=== PATIENT | male | born 1945 | race Caucasian/White ===

== ENCOUNTER 2016-08-22 10:46 | Inpatient (IN) | payer MEDICARE ==
[~2016-08-22] VITALS: Ht 190.5 cm; Wt 138.2 kg
--- NOTE | ~2016-08-22 | DS ---
PATIENT'S NAME: PELON AZEVEDO [facility] AGE: 71 Y [address] ROOM: [facility] [place], [place] [address] LOCATION: GICU ADMIT DATE: 08/22/2016 Discharge Summary DISCHARGE DATE: 08/27/2016 FAMILY PHYSICIAN: Sourav Bahena MD ATTENDING PHYSICIAN: Frances Sanchez DATE OF : August 27, 2016. REASON FOR ADMISSION: The patient was a 71-year-old male who had sustained a fall the evening before his admission and as a result of the fall, developed a large subdural hematoma. Treatment rendered, the patient was transferred from [facility] by air to [facility]. At the time of arrival, the patient had no eye opening, no motor response, and he was already intubated. There was a laceration to the back of his head, which had been stapled. TREATMENT RENDERED: The patient was taken to the operating room emergently and underwent craniotomy for evacuation of his subdural hematoma and placement of intracranial pressure monitor. Postoperatively, the patient did not really respond or regain consciousness. His intracranial pressures were initially controllable, but they became rather difficult to control and climbed up progressively. 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 Discussions were held with the patient's family and they did not wish for prolongation of the patient's life as the quality of life was not going to be very acceptable and even his survival was questionable. The patient was therefore compassionately extubated and he shortly thereafter. CAUSE OF : Cardiorespiratory failure secondary to increased intracranial pressure from large subdural hematoma. The patient was status post craniotomy and evacuation of hematoma. FRANCES SANCHEZ MD CNO/modl /[id number] d: 09/23/16 0838 t: 09/23/16 1511, DISCHARGE SUMMARY
--- NOTE | ~2016-08-22 | OR ---
PATIENT'S NAME: PELON AZEVEDO [facility] AGE: 71 Y [address] ROOM: [place] [address] LOCATION: GICU ADMIT DATE: 08/22/2016 OR/Procedure Report DISCHARGE DATE: FAMILY PHYSICIAN: Sourav Bahena MD ATTENDING PHYSICIAN: Jazmin Sanchez SURGEON: Devin Levine MD WATERSHED PROGRAM MANAGER: DATE OF PROCEDURE: 08/22/2016 PROCEDURES: 1. Right internal jugular vein central venous catheter. 2. Left radial arterial line. INDICATIONS: The patient with large acute subdural hematoma requiring craniotomy evacuation of hematoma, need for a hndf-xo-xzav pressure, monitoring, volume assessment, and elective medications. DESCRIPTION OF PROCEDURE: The patient is lying supine in the operating room. Right neck and chest were prepped with chlorhexidine 2% and maximal sterile barriers were worn at all times. Ultrasound was used to visualize the internal jugular vein with a single stick using ultrasound guidance. Dark nonpulsatile blood was found on return and the wire was fitted without difficulty. The ultrasound was then used to visualize the wire in internal jugular vein. Skin, nicked, dilated, and 16 cm four lumen catheter was placed over wire without complication. The wire was removed. The catheter was sutured in place. All ports withdrew, blood flushed easily and sterile dressing applied on top. Chest x-ray ordered in the ICU. The left arm was extended out about 90 degrees and the radial artery was easily palpated. The area was cleaned with chlorhexidine 2% and a 20-gauge Arrow catheter was inserted with a single stick using Seldinger technique. Bright red pulsatile blood was found and catheter threaded easily and was secured into place. COMPLICATIONS: None. BLOOD LOSS: None. DEVIN LEVINE MD JJP/uma PATIENT'S NAME: PELON AZEVEDO [facility] AGE: 71 Y [address] ROOM: [place] [address] LOCATION: GI ADMIT DATE: 08/22/2016 OR/Procedure Report DISCHARGE DATE: FAMILY PHYSICIAN: Sourav Bahena MD ATTENDING PHYSICIAN: Jazmin Sanchez /[id number] d: 08/22/16 1513 t: 09/11/16 1344, OPERATIVE SUMMARY
--- NOTE | ~2016-08-22 | ER ---
PATIENT'S NAME: PELON AZEVEDO [facility] AGE: 71 Y [address] ROOM: [place] [address] LOCATION: GICU ADMIT DATE: 08/22/2016 ER/Outpatient Report DISCHARGE DATE: FAMILY PHYSICIAN: Sourav Bahena MD ATTENDING PHYSICIAN: Jazmin Sanchez CHIEF COMPLAINT: Unresponsive. HISTORY OF PRESENT ILLNESS: The patient arrives by air ambulance from [facility]. The patient was diagnosed with intracranial hemorrhage, likely subdural hematoma, traumatic, this morning. The patient was seen last night in the ER for a fall while at home. The patient is a known alcoholic. He was deemed to be neurologically appropriate last night, and his scalp laceration was closed and he was discharged. He did not wake up at 2 a.m. according to the who has some broken ankle issues and thus when he did not wake up this morning, she called the ambulance. A head CT at that time revealed a large intracranial hemorrhage. The patient was intubated by air care and transferred here for further evaluation. He did not receive any pressors or any asthmatic agents prior to arrival. He had been hypertensive otherwise. PAST MEDICAL HISTORY: As available have been documented on the record and reviewed by me. SOCIAL HISTORY: As available have been documented on the record and reviewed by me. MEDICATIONS: As available have been documented on the record and reviewed by me. ALLERGIES: AVAILABLE HAVE BEEN DOCUMENTED ON THE RECORD AND REVIEWED BY ME. REVIEW OF SYSTEMS: Unable to obtain review of systems. All collateral information by EMS and referring provider. PHYSICAL EXAMINATION: VITAL SIGNS: Blood pressure 147/80, heart rate of 65, SpO2 is in the high 90s with 100% FiO2. GENERAL: Age-appropriate male, large obese male, intubated, on the gurney. NEUROLOGIC: The patient is flaccid to all extremities 30 minutes after most recent paralysis. Pupils: Right pupil 5, left pupil 3, minimally reactive to light. GCS is 3T. PATIENT'S NAME: PELON AZEVEDO [facility] AGE: 71 Y [address] ROOM: [place] [address] LOCATION: GICU ADMIT DATE: 08/22/2016 ER/Outpatient Report DISCHARGE DATE: FAMILY PHYSICIAN: Sourav Bahena MD ATTENDING PHYSICIAN: Jazmin Sanchez HEENT: Normocephalic with a large laceration closed and bandaged on the left occipitoparietal region. Otherwise, unremarkable. Eyes are not PERRL, minimally reactive as above. Oropharynx with endotracheal tube 8.0. No obvious abnormalities. NECK: Supple. Trachea is midline. CHEST: With bilateral breath sounds present. HEART: Regular rate and rhythm with no obvious murmurs. ABDOMEN: Obese, but otherwise benign. EXTREMITIES: Grossly unremarkable with IO on the right tibia. SKIN: Appears to be intact otherwise. LABS AND X-RAYS: Pending. IMPRESSION: Acute traumatic subdural hematoma. EMERGENCY DEPARTMENT COURSE: The patient was seen and evaluated as above. Dr. Sanchez was consulted. I had to perform ultrasound-guided IV to establish intravenous access in addition to the IO. Mannitol was initiated. He was taken to the operating room before labs could be drawn for further evaluation and treatment and surgical decompression by Dr. Sanchez, neurosurgeon. MD NILESH LYNN/uma /[id number] d: 08/22/165 t: 08/23/16 0814, OUTPATIENT REPORT
--- NOTE | ~2016-08-22 | OR ---
PATIENT'S NAME: PELON AZEVEDO [facility] AGE: 71 Y [address] ROOM: [facility] [place], [place] [address] LOCATION: [facility] ADMIT DATE: 08/22/2016 OR/Procedure Report DISCHARGE DATE: FAMILY PHYSICIAN: Sourav Bahena MD ATTENDING PHYSICIAN: Jazmin Sanchez SURGEON: Jazmin Sanchez MD UX INFORMATION ARCHITECT: Larry Hobson CST. DATE OF PROCEDURE: 08/22/2016 PREOPERATIVE DIAGNOSIS: Acute right subdural hematoma. POSTOPERATIVE DIAGNOSIS: Acute right subdural hematoma. PROCEDURES PERFORMED: 1. Right frontotemporal craniotomy and evacuation of acute right subdural hematoma. 2. Placement of right ventriculostomy for treatment of increased intracranial pressure. ANESTHESIA: General. ANESTHESIA PROVIDER: Devin Levine MD. HISTORY: The patient is a 71-year-old male, transferred from [facility] today with a large acute right subdural hematoma. On arrival in the Emergency Room, the patient was already intubated. I was unable to get any response from him. His pupils were non-reactive, 5 on the right side and 3 on the left side. I spoke with the patient's and explained to her that the patient had a right subdural hematoma, and would not likely survive without treatment. I also discussed with her that even with treatment, I could not tell how the patient would do, given how unresponsive he was before surgery. The patient's was agreeable to surgery, to try and see if the patient would come around. I explained the procedure of craniotomy and evacuation of hematoma to her, and with her consent, the patient was brought to the Operating Room for surgery. PROCEDURE IN DETAIL: In the Operating Room, the patient was placed supine. Appropriate support lines were started. A roll was placed under his right shoulder, and his head was supported on a gel donut with his face turned facing to the left side. The hair on the right side of his head was clipped. The incision line was marked out. The whole area was prepped and draped in a sterile fashion. Local anesthesia was infiltrated. The #10-blade was used to open the scalp. A Bovie was used to deepen the incision to the skull, and then the scalp flap was peeled back to expose an area of bone covering the frontal and temporal regions of the brain. The flap was held back with sutures PATIENT'S NAME: PELON AZEVEDO [facility] AGE: 71 Y [address] ROOM: [id number] [place] [address] LOCATION: [facility] ADMIT DATE: 08/22/2016 OR/Procedure Report DISCHARGE DATE: FAMILY PHYSICIAN: Sourav Bahena MD ATTENDING PHYSICIAN: Jazmin Sanchez attached to rubber bands. A single robert hole was placed in the posterior inferior part of the exposed skull, and using this robert hole, a craniotomy flap was turned. The dura was bulging appreciably under the bone flap. The dura was opened, and we encountered very thick subdural blood. It was clearly exerting significant pressure on the underlying brain. Working very carefully, the clots were removed piecemeal. We identified a couple of cortical vessels that were bleeding vigorously, and probably contributed to the patient's hematoma. Otherwise, the brain was not really bruised or contused. Working very carefully as much of the subdura that was visible was removed. Irrigation was used to wash out debris. The dura was then closed with appropriate suture materials. The bone flap was replaced. A series of bones were drilled around the edge of the bone flap, and matching holes were drilled around the edge of the craniotomy defect. Using these sets of holes, sutures were passed from one to the other, to try the bone flap back in place. The incision was then closed with appropriate suture materials. A sterile dressing was applied. The patient was then re-positioned for the ventriculostomy. His head was re- prepped. The entry point was marked out at 12.5 cm behind the right mid- pupillary line. Local anesthesia was infiltrated. The skin was opened, and self-retaining retractor was used to hold the scalp open. The twist drill was used to drill a hole through the skull. The catheter was tunneled under the scalp and brought out of the entry point. The dura was coagulated. The catheter was inserted. The ventricle was accessed at first try. Clear-colored spinal fluid was obtained. Opening pressure was only 2 cm of water. The entry incision was closed. The drain was secured to the scalp. The patient's head was then wrapped with sterile bandage. DISPOSITION: He was brought back to the Intensive Care Unit still intubated to continue his recovery. ATTESTATION: I was present at and performed every aspect of this procedure, assisted at different stages by Operating Room nurses. COMPLICATIONS: There were no apparent intraoperative complications. COUNT RESULTS: Swabs, needles, and instruments were all accounted for at the PATIENT'S NAME: PELON AZEVEDO [facility] AGE: 71 Y [address] ROOM: [address] [address] LOCATION: [facility] ADMIT DATE: 08/22/2016 OR/Procedure Report DISCHARGE DATE: FAMILY PHYSICIAN: Sourav Bahena MD ATTENDING PHYSICIAN: Jazmni Sanchez end of the case. ESTIMATED BLOOD LOSS: 400 mL. There was no reason for a blood transfusion. CONDITION: The patient's prognosis is uncertain at this time. He clearly had a very large subdural hematoma with some bleeding into the brainstem region. We have, however, evacuated the subdural hematoma, and we will continue treating the patient aggressively with head injury protocol. PLAN: I will continue to follow him in the ICU. MD VALERIE LIANGO/modl /[id number] CC: Sourav Bahena MD d: 08/23/16 0158 t: 08/25/16 1716, OPERATIVE SUMMARY
--- NOTE | ~2016-08-22 | HP ---
PATIENT'S NAME: JOSHUA LOVE [facility] AGE: 71 Y [address] ROOM: [place] [address] LOCATION: GICU ADMIT DATE: 08/22/2016 History & Physical DISCHARGE DATE: FAMILY PHYSICIAN: Sourav Bahena MD ATTENDING PHYSICIAN: Jazmin Bell DATE OF SERVICE: 08/22/2016 The patient referred from [facility]. REASON FOR REFERRAL: Subdural hematoma. PATIENT IDENTIFICATION: Joshua Love is a 71-year-old male. PRESENTING COMPLAINT: Decreased level of consciousness. HISTORY OF PRESENT ILLNESS: History was obtained from the patient's as the patient himself was unable to provide a history. According to the patient's , the patient tripped on some steps last evening while climbing up to close window blinds. He fell into a glass cabinet hitting his head. He broke the glass and sustained some cuts to his head. He was taken to [facility] and had some ananya placed for the laceration. He was then released home. The patient's was asked to check him periodically. When she checked him this morning, the patient was not responding. The patient's therefore called for ambulance and the patient was brought to [facility]. He was assessed there and found to have a large subdural hematoma. Our [facility] people were sent out to get the patient. They intubated the patient and flew him back to [facility], where I met the patient in the emergency room. Prior to his arrival, the patient had received mannitol en route. PAST MEDICAL HISTORY: The patient has had a deep brain stimulator placed for essential tremor according to the . According to the referring notes, the patient has a history of alcohol abuse. He also has atrial fibrillation and flutter, chronic obstructive pulmonary disease, congestive heart failure, gastroesophageal reflux disease, and hypertension. The patient has osteoarthritis and prostate cancer. CURRENT MEDICATIONS: The patient is on several medications and please refer to chart. PATIENT'S NAME: JOSHUA LOVE [facility] AGE: 71 Y [address] ROOM: [place] [address] LOCATION: GICU ADMIT DATE: 08/22/2016 History & Physical DISCHARGE DATE: FAMILY PHYSICIAN: Sourav Bahena MD ATTENDING PHYSICIAN: Jazmin Bell ALLERGIES: HE IS ALLERGIC TO KEFLEX, CODEINE, PENICILLIN, AND PERCOCET. SOCIAL HISTORY: The patient is . I do not know whether he smokes or whether he drinks. FAMILY HISTORY: There is no family history available at this time. REVIEW OF SYSTEMS: Unable to obtain a review of systems as the patient is not responding. PHYSICAL EXAMINATION: VITAL SIGNS: On examination, I saw the patient in the emergency room already intubated. Vital signs in the ER, blood pressure was 148/75 with a pulse rate of 104. NEUROLOGIC: The patient has no eye opening. He had no motor response; although, he had just had some paralytics for intubation. He could not make any verbal response as he was intubated. We gave him a Bosworth Coma Score of 3. Pupils: His right pupil was a 5, left pupil was a 3, neither one was reacting. GENERAL: The patient is a large-framed individual. HEENT: Head: There is a laceration to the back of his head, which has been stapled. He also has a scar from his spinal stimulator on his scalp. Nose and ears: No evidence of trauma. SKIN: No skin rashes or masses noted. EXTREMITIES: No cyanosis or clubbing. ABDOMEN: Protuberant. RESPIRATORY: The patient is intubated. GENITOURINARY: The patient did get a Dubon catheter while he was in the ER as mannitol was being administered. REVIEW OF IMAGING STUDIES: The patient has had a head CT scan performed in [facility]. The CT scan shows a very large acute right subdural hematoma with midline shift and effacement of the right lateral ventricle. There is also some intracerebral hemorrhage in the pontine region. MEDICAL DECISION MAKING: I felt the patient was in a very critical condition and I spoke with the patient's in this regard. I recommended craniotomy for evacuation of the subdural hematoma. I told the patient's that I could not assure her that the patient would come out of this condition considering how unresponsive he is; however, without any surgery, he will almost certainly not going to survive. The patient's consented to surgery being done. The patient was PATIENT'S NAME: JOSHUA LOVE [facility] AGE: 71 Y [address] ROOM: [address] [address] LOCATION: [facility] ADMIT DATE: 08/22/2016 History & Physical DISCHARGE DATE: FAMILY PHYSICIAN: Sourav Bahena MD ATTENDING PHYSICIAN: Jazmin Bell therefore taken directly from the emergency room to the operating room to undergo craniotomy for evacuation of the subdural hematoma. JAZMIN BELL MD CNO/modl /[id number] CC: MO Chaudhry MD D: [id number] T: [id number] HISTORY & PHYSICAL
--- NOTE | ~2016-08-22 | ENPV ---
Vascular Lower Extremities DVT Study Procedure Demographics Patient Name PELON AZEVEDO Date of Study 08/26/2016 Patient Number [id number] Gender Male Date of 1945 Age 71 Visit Number [id number] Height Accession Number [id number] Weight Room Number G6213 BSA BMI Referring Brianboone Benjamin Rocio Humphrey MD Physician DO Physician Laura Vinson MD Physician Ordering Physician Julianna Vinson Scenic Designer Excavating Contractor Prateek Pineda RVT Conclusions Summary No evidence of deep vein thrombosis or superficial thrombus in bilateral lower extremity veins visualized. Bilateral proximal peroneal veins and proximal posterior tibial veins were not visualized secondary to sub-optimal imaging. Cannot rule out deep vein thrombosis in these vein segments. Procedure Type of Study: Veins:Lower Extremities DVT Study, Venous Duplex Lower Extremity Bilateral. Indications for Study:Bilateral lower extremity edema and Extended bedrest. Appropriate Use Criteria:7 Patient Status:Routine. Study Location:Inpatient Portable. Technical Quality:Limited visualization due to sub-optimal image. Velocities are measured in cm/s ; Diameters are measured in cm Right Lower Extremities DVT Study Measurements Right 2D and Doppler Measurements + + + + +------+------+ + !Location !Visualized!Compressibility!Thrombosis!Signal!Reflux!Reflux ! ! ! ! ! ! ! !(sec) ! + + + + +------+------+ + !GSV Thigh !Yes !Yes !None !Phasic!No ! ! + + + + +------+------+ + !Common !Yes !Yes !None !Phasic!No ! ! !Femoral ! ! ! ! ! ! ! + + + + +------+------+ + !Prox !Yes !Yes !None !Phasic!No ! ! !Femoral ! ! ! ! ! ! ! + + + + +------+------+ + !Mid Femoral!Yes !Yes !None !Phasic!No ! ! + + + + +------+------+ + !Dist !Yes !Yes !None !Phasic!No ! ! !Femoral ! ! ! ! ! ! ! + + + + +------+------+ + !Popliteal !Yes !Yes !None !Phasic!No ! ! + + + + +------+------+ + !Gastroc !Yes !Yes !None ! ! ! ! + + + + +------+------+ + !PTV !Yes !Yes !None ! ! ! ! + + + + +------+------+ + !Peroneal !Yes !Yes !None ! ! ! ! + + + + +------+------+ + Left Lower Extremities DVT Study Measurements Left 2D and Doppler Measurements + + + + +------+------+ + !Location !Visualized!Compressibility!Thrombosis!Signal!Reflux!Reflux ! ! ! ! ! ! ! !(sec) ! + + + + +------+------+ + !GSV Thigh !Yes !Yes !None !Phasic!No ! ! + + + + +------+------+ + !Common !Yes !Yes !None !Phasic!No ! ! !Femoral ! ! ! ! ! ! ! + + + + +------+------+ + !Prox !Yes !Yes !None !Phasic!No ! ! !Femoral ! ! ! ! ! ! ! + + + + +------+------+ + !Mid Femoral!Yes !Yes !None !Phasic!No ! ! + + + + +------+------+ + !Dist !Yes !Yes !None !Phasic!No ! ! !Femoral ! ! ! ! ! ! ! + + + + +------+------+ + !Popliteal !Yes !Yes !None !Phasic!No ! ! + + + + +------+------+ + !Gastroc !Yes !Yes !None ! ! ! ! + + + + +------+------+ + !PTV !Yes !Yes !None ! ! ! ! + + + + +------+------+ + !Peroneal !Yes !Yes !None ! ! ! ! + + + + +------+------+ + Signature dtt: VALDEZ GASCA dtrocio: 08/26/16 0747 Physician Seth Richardson
--- NOTE | ~2016-08-22 | CON ---
PATIENT'S NAME: PELON AZEVEDO [facility] AGE: 71 Y [address] ROOM: [place] [address] LOCATION: GICU ADMIT DATE: 08/22/2016 Consultation DISCHARGE DATE: FAMILY PHYSICIAN: Sourav Bahena MD ATTENDING PHYSICIAN: Jazmin Sanchez DATE OF CONSULTATION: 08/22/2016 INDICATION: For neuro-intensive care management. CHIEF COMPLAINT: Subdural hematoma. HISTORY OF PRESENT ILLNESS: This is a 71-year-old male, who was found unresponsive this morning by his around 6 a.m. and was unresponsive. Apparently, last night, he fell and got a laceration on his scalp, closing the window. He was taken into the hospital in [place], got some ananya closed up, and was sent home. He was not responsive. His was unable to wake him she called the Clinic and got the ambulance and first responders to come out, she felt they got there at approximately 9 o'clock. He was non-responsive and breathing spontaneously at that time. He was then taken in and got a CT scan that showed a large right subdural hematoma. He was transferred by helicopter to [facility], where a craniotomy and evacuation of his hematoma were immediately performed. [place] Coma Score at [place] was 3 to 4. He had a dilated, fixed right pupil and a sluggish about 3-mm pupil. He had been hypertensive and the blood pressure was in the 180s to 190s over 100s and heart rate was 88. He was intubated there for his GCS and transport. REVIEW OF SYSTEMS: Unobtainable at this time. MEDICAL HISTORY: 1. He has a history of atrial fibrillation and atrial flutter versus ablation. 2. He has had history of COPD and recently got over an acute respiratory infection. 3. Obesity. 4. Alcohol abuse. 5. History of congestive heart failure. 6. Reflux. 7. Hypertension. PATIENT'S NAME: PELON AZEVEDO [facility] AGE: 71 Y [address] ROOM: [place] [address] LOCATION: GICU ADMIT DATE: 08/22/2016 Consultation DISCHARGE DATE: FAMILY PHYSICIAN: Sourav Bahena MD ATTENDING PHYSICIAN: Jazmin Sanchez 8. Lumbar disk disease. 9. Prostate cancer. 10. Parkinson's. Though the spouse says that he did not have Parkinson's, and then he was found to have an essential tremor. 11. He also has a history of GI bleed. 12. Coronary artery disease. PAST SURGICAL HISTORY: 1. He has had a colostomy in 2015. 2. Cholecystectomy. 3. Ablation in his heart. 4. Deep brain stimulator placement. SOCIAL HISTORY: History of smoking, none currently. He drinks alcohol about 4 to 5 a day. He had been sober for four or five months. ALLERGIES: HE IS ALLERGIC TO CODEINE, KEFLEX, AND PENICILLIN. MEDICATIONS: On his chart, 1. Norvasc 5 mg a day. 2. Duloxetine. 3. Furosemide 20 mg. 4. Lorazepam. 5. Losartan. 6. Protonix. 7. Potassium chloride. 8. He has a ProAir inhaler. 9. Spiriva inhaler. PHYSICAL EXAMINATION: VITAL SIGNS: Blood pressure is 130/80, heart rate is 92, saturations are 100, CVP is 5, ICP is 2, and temperature is 98.4. GENERAL: He is intubated and sedated postop. HEENT: Head: He has got dressings intact and ABD with draining clear fluid tube midline and the right central venous catheter. CHEST: Clear to auscultation. Regular rate and rhythm. ABDOMEN: Obese and soft. Positive bowel sounds. EXTREMITIES: He had 1 to 2+ pitting edema in his lower extremities. NEUROLOGIC: His pupils are unequal, right bigger than left. Right is not too responsive; left with questionable response. I cannot get him to withdrawal on extremities and to sternal rub. He does have extension in four extremities. Non commands. No eye opening. PATIENT'S NAME: PELON AZEVEDO [facility] AGE: 71 Y [address] ROOM: [id number] [place] [id number] LOCATION: [facility] ADMIT DATE: 08/22/2016 Consultation DISCHARGE DATE: FAMILY PHYSICIAN: Sourav Bahena MD ATTENDING PHYSICIAN: Jazmin Sanchez LABORATORY DATA: AB.46, 40 pCO2, pO2 of 154. Lactate was 3.3. White count is 24, hemoglobin is 14, hematocrit is 45, and platelets are 404. Potassium was 3.9, sodium was 138, and glucose was 150. AST and ALT are normal. ASSESSMENT AND PLAN: This is a 71-year-old with a large subdural hematoma. 1. Neuro: Maintain CPP at 60 to 90 and ICP was less than 20. Make sure to try to mitigate any problems from secondary injury, maintaining oxygenation and blood flow. This is a pretty significant head injury with a high mortality and uncertain recovery . 2. Pulmonary: Acute respiratory failure secondary to above. He is unable to protect his airway, and has hypercarbic and hypoxic components. Maintain ventilator, currently he is on 650 at the rate of 16 and PEEP of 5. 3. Hypertension. He is not currently hypertensive. He was on Erasto to maintain a blood pressure and CPP of 60. We will wean that off as tolerated and monitor for hypotension. If ICPs are not initiated, I would like to keep his blood pressure less than 160. 4. Renal: To monitor his electrolytes and urine output. They did give a dose of mannitol and replacement as needed. 5. Gastrointestinal: He is n.p.o. now. We will probably start some tube feedings tomorrow, with sucralfate and following up PPI on as well. 6. Endocrine: No history of diabetes or hypothyroid. He checks blood sugars and uses sliding scale as needed. 7. Infectious Disease: No issues at this time. He is afebrile. He does have leukocytosis, which was probably just demargination from postop. There was, however, a fair amount of aspirate in mouth of the ET tubes, so there is a possibility of aspiration at some point prior to his arrival. 8. Heme: No acute anemia at this time. 9. Prophylaxis: No anticoagulants at this time. We will use SCDs and TEDs with sucralfate and Keppra for seizure prophylaxis. I spent approximately 45 minutes in review of critical care time, talking with the family, examining the patient. MD JEFFREY BAL/uma /[id number] d: 08/22/16 2249 t: 09/11/16 1346, CONSULTATION REPORT
--- NOTE | ~2016-08-22 | CON ---
PATIENT'S NAME: PELON AZEVEDO [facility] AGE: 71 Y [address] ROOM: [place] [id number] LOCATION: GICU ADMIT DATE: 08/22/2016 Consultation DISCHARGE DATE: 08/27/2016 FAMILY PHYSICIAN: Sourav Bahena MD ATTENDING PHYSICIAN: Jazmin Sanchez DATE OF CONSULTATION: 08/27/2016 REFERRING PHYSICIAN: Devin Levine MD PALLIATIVE MEDICINE CONSULTATION REFERRING PROVIDERS: 1. Devin Levine MD. 2. Jazmin Sanchez MD. LOCATION: ICU Room [facility]. REFERRING PROVIDER: Devin Levine MD CHIEF COMPLAINT: Palliative Care referral for family support and goals of care. HISTORY OF PRESENT ILLNESS: The patient is a 71-year-old male, who was admitted after a fall resulting in a scalp laceration. The patient was taken to the [place] ER where he received ananya and was sent home with recommendations for his to monitor his neurological status. The patient's found him unresponsive at home. He was taken back into [place], where he was found to have a large right subdural hematoma. He was intubated and flown to [facility] where he underwent a craniotomy and evacuation of his hematoma. A followup head CT on 08/26/2016 showed recurring right subdural hematoma, stable brainstem bleed, as well as a right posterior cerebral infarct. Given the patient's guarded prognosis, Palliative Care is consulted to provide support for the family. PAST SURGICAL HISTORY: Previous Operations: 1. Right knee surgery. 2. Laparoscopic cholecystectomy. 3. Manning mini-maze procedure. 4. Left knee surgery. 5. Right total knee. PAST MEDICAL HISTORY: PATIENT'S NAME: PELON AZEVEDO [facility] AGE: 71 Y [address] ROOM: [place] [address] LOCATION: GICU ADMIT DATE: 08/22/2016 Consultation DISCHARGE DATE: 08/27/2016 FAMILY PHYSICIAN: Sourav Bahena MD ATTENDING PHYSICIAN: Jazmin Sanchez 1. History of prostate cancer treated with radiation. 2. Hypertension. 3. Alcohol use. 4. History of atrial fibrillation. 5. DVT. 6. Sleep apnea. Wears CPAP at night. 7. COPD. 8. GERD. 9. Chronic depression. 10. Tremor. MEDICATIONS: Please see current MAR. ALLERGIES: CODEINE CAUSES ITCHING. PERCOCET, SINEMET, AND KEFLEX. SOCIAL HISTORY: The patient is and lives with his in [place]. They do not have any children. He has a history of smoking 2-1/2 packs a day for 25 years. He quit in the . The patient typically has one drink daily. FAMILY HISTORY: His mother had heart disease and bone cancer. His father had Parkinson's. He has a brother with diabetes and heart disease. REVIEW OF SYSTEMS: Unobtainable as patient is intubated and unresponsive. His reports that prior to this incident he was in his usual state of health. PHYSICAL EXAMINATION: VITAL SIGNS: Blood pressure 152/59, heart rate 86, temperature 99.9, respirations 16, and O2 saturation 95% on 30% FiO2 on the ventilator. GENERAL: Reveals an elderly white male, who is intubated. Sedation has been off, lying in intensive care unit. Does not appear to be in any acute distress. HEENT: Normocephalic and atraumatic. He has dressings to his head with a drainage catheter. Pupils are fixed, right greater than left. Tongue and mucous membranes are moist and pink. Dentition is adequate. CARDIOVASCULAR: Heart tones are regular rate and rhythm. I am not able to note a murmur. RESPIRATORY: Respirations are regular and nonlabored on the ventilator. Lung sounds are slightly coarse. GASTROINTESTINAL: Abdomen is soft. It is nondistended. Bowel sounds are present. PATIENT'S NAME: PELON AZEVEDO [facility] AGE: 71 Y [address] ROOM: [place] [address] LOCATION: [facility] ADMIT DATE: 08/22/2016 Consultation DISCHARGE DATE: 08/27/2016 FAMILY PHYSICIAN: Sourav Bahena MD ATTENDING PHYSICIAN: Jazmin Sanchez GENITOURINARY: Dubon catheter intact with adequate amounts of urine. MUSCULOSKELETAL: No significant joint deformities. Peripheral pulses are strong and equal bilaterally. No clubbing or cyanosis. He does have 2 to 3+ generalized edema. SKIN: Warm and dry. NEUROLOGICAL: Does not open his eyes. Does not follow commands. Pupils are unequal, right larger than left and unresponsive for me. I am unable to get him to withdraw in the lower extremities. IMPRESSION AND PLAN: 1. Altered mental status. 2. Respiratory failure. 3. Code status: The patient is a DNR. I visited and introduced the role of palliative care to the patient's . Intensive care RN updated the patient's on his current neurological condition and changes from the previous day. At that point, informs us that she does not think that he would want to pursue a tracheostomy and PEG or want to live this way and that she plans to call the patient's brother and most likely withdraw care later today. Provided emotional support as well as education on compassionate extubation, and medications we would use to ensure that the patient was comfortable during this process. I did offer pastoral care. This was declined by family. At this point, we will await family's final decision and provided emotional support and symptom management as needed. I answered family's questions to the best of my ability. Total visit was 25 minutes. Thank you for allowing me to assist this patient and family. JOSS SCHWAB NP FOR ROVERTO DE OLIVEIRA MD DLS/modl /[id number] CC: MD Devin Verma MD d: 08/28/16 2156 t: 09/02/16 1400, CONSULTATION REPORT
[~2016-08-22 10:46] MED LIST changes: -AMOXICILLIN500 MG PO; -ATIVAN 0.5MG0.5 MG PO; -PROAIR HFA8.5 GM INH; -SPIRIVA HANDIHA1 KIT INH
[2016-08-22 11:34] LABS: BILIRUBIN URINE NEGATIVE (NEGATIVE); BLOOD URINE 250 /UL (NEGATIVE); COLOR URINE YELLOW (YELLOW); GLUCOSE URINE NEGATIVE (NEGATIVE); KETONE URINE NEGATIVE (NEGATIVE); LEUKOCYTES URINE NEGATIVE /UL (NEGATIVE); NITRITE URINE NEGATIVE (NEGATIVE); PROTEIN URINE 15 mg/dL (NEGATIVE); TURBIDITY URINE CLEAR (CLEAR); UROBILINOGEN URINE NORMAL (NORMAL)
[2016-08-22 11:39] LABS: AMORPHOUS URINE 1+ (NEGATIVE); BACTERIA URINE NEGATIVE (NEGATIVE); EPITHELIAL URINE NEGATIVE #/HPF (NEGATIVE); MUCUS URINE 1+ (NEGATIVE); RBC URINE 50-100 #/HPF (NEGATIVE)
[2016-08-22 12:16] LABS: HEMOGLOBIN 14.8 g/dL (11.0-16.0); MCH 33.2 pg (27.0-34.0); MCHC 32.9 gm/dL (32.0-36.5); MCV 100.9 fl (83.0-98.0); MPV 8.9 fl (9.4-12.4); PLATELET COUNT 404 K/uL (150-450); RBC 4.46 M/uL (3.50-5.50); RDW-CV 13.2 % (11.9-14.6)
[2016-08-22 12:18] LABS: WBC 24.6 K/uL (4.0-11.0)
[2016-08-22 12:21] LABS: INR - (THERAPEUTIC) 1.01 (0.92-1.07); PROTIME 10.6 SECONDS (9.8-11.4)
[2016-08-22 12:36] LABS: ALBUMIN 3.1 gm/dL (3.5-5.0); ALK PHOS 63 IU/L (33-138); ALT 20 IU/L (12-78); ANION GAP 15.6 (10.0-19.0); AST 13 IU/L (10-40); BLOOD UREA NITROGEN 13 mg/dL (6-24); CALCIUM 7.9 mg/dL (8.5-10.5); CHLORIDE 102 mMol/L (96-110); CO2 27 mMol/L (22-32); CREATININE 0.9 mg/dL (0.6-1.3); ESTIMATED GFR (MDRD EQUATION) > 60; POTASSIUM 3.6 mMol/L (3.7-5.1); SODIUM 141 mMol/L (135-145); TOTAL BILIRUBIN 1.1 mg/dL (0.0-1.5); TOTAL PROTEIN 5.8 g/dL (6.0-8.4)
[2016-08-22 12:38] LABS: ABSOLUTE NEUTROPHIL CT (ANC) 21.9 K/uL (1.4-9.0); LYMPHOCYTE % 4 %; MONOCYTE # 1.7 K/uL (0.0-1.0); SEGMENTED NEUTROPHIL # 21.9 K/uL (1.4-9.0); SEGMENTED NEUTROPHIL % 89 %
[2016-08-22 13:39] LABS: BICARBONATE 25.6 mmol/L (18.0-23.0); PCO2 43 mmHg (35-45); PO2 165 mmHg (80-90); POTASSIUM 3.9 mEq/L (3.7-5.1); SODIUM 138 mEq/L (135-145)
[2016-08-22] MEDS ORDERED: ATIVAN 0.5MG0.5 MG PO (15:53)
[2016-08-22] MEDS ORDERED: PROAIR HFA8.5 GM INH (15:54)
[2016-08-22] MEDS ORDERED: SPIRIVA HANDIHA1 KIT INH (15:54)
[2016-08-22] MEDS ORDERED: COZAAR50 MG PO (15:54)
[2016-08-22] MEDS ORDERED: AMOXICILLIN500 MG PO (15:55)
[2016-08-22 16:17] LABS: BICARBONATE 28.4 mmol/L (18.0-23.0); PCO2 40 mmHg (35-45); PO2 154 mmHg (80-90)
--- NOTE | 2016-08-22 17:51 | NUR ---
D: CRANIOTOMY I: VENT, MDI R: PT ARRIVED IN ICU AROUND 15:10, INITIAL VENT SETTINGS AC 16, VT 650, P5, WEANED FIO2 TO 40%, PT HAS AN 8.0 ETT SECURED @ 25 @ LIPS VIA ETAD, TOOK PT TO CT AROUND 17:00 DUE TO FIXED PUPILS P: CONT.
--- NOTE | 2016-08-22 18:41 | NUR ---
Patient arrived from OR after craniotomy, ICP/ventric placement at 1504. Patient was at home evening of 08/21 and fell after tripping on the dog. Patient hit a piece of furniture. [place] [facility] stitched laceration and sent patient home. reports she was unable to wake patient at 0200. EMS was called at 0800. [facility] flight intubated patient in [place]. GCS of 3. Patient to OR with Dr. Sanchez performing craniotomy with evacuation of large acute subdural hematoma. Upon arrival in ICU, pupils were fixed and unreactive, abnormal flexion with sternal rub in BLE, and RUE.
[2016-08-23 04:50] LABS: BICARBONATE 26.8 mmol/L (18.0-23.0); LACTATE 1.4 mEq/L (0.50-1.60); PCO2 36 mmHg (35-45)
[2016-08-23 04:51] LABS: PO2 83 mmHg (80-90)
--- NOTE | 2016-08-23 05:02 | NUR ---
No vent changes made this shift. Continues on FiO2 40%. BrSs slightly coarse at times, diminished bases. Suctioned small amounts of cream/aguirre thick secretions from ETT. EtCO2 36-38 this shift. Does cough with suction. On propofol for sedation. Continue per plan of care.
[2016-08-23 05:12] LABS: ALBUMIN 2.7 gm/dL (3.5-5.0); ALK PHOS 71 IU/L (33-138); ALT 27 IU/L (12-78); ANION GAP 12.5 (10.0-19.0); AST 23 IU/L (10-40); BLOOD UREA NITROGEN 10 mg/dL (6-24); CALCIUM 7.5 mg/dL (8.5-10.5); CHLORIDE 117 mMol/L (96-110); CO2 25 mMol/L (22-32); CREATININE 0.9 mg/dL (0.6-1.3); ESTIMATED GFR (MDRD EQUATION) > 60; POTASSIUM 3.5 mMol/L (3.7-5.1); SODIUM 151 mMol/L (135-145); TOTAL BILIRUBIN 1.1 mg/dL (0.0-1.5); TOTAL PROTEIN 5.5 g/dL (6.0-8.4)
[2016-08-23 05:25] LABS: BASOPHIL # 0.2 K/uL (0.0-0.2); BASOPHIL % 0.8 %; EOSINOPHIL # 0.2 K/uL (0.0-0.5); EOSINOPHIL % 0.9 %; HEMATOCRIT 41.9 % (37.0-53.0); HEMOGLOBIN 13.5 g/dL (11.0-16.0); IMMATURE GRANULOCYTE # 0.1 K/uL (0.0-0.3); IMMATURE GRANULOCYTE % 0.7 %; LYMPHOCYTE # 0.9 K/uL (0.8-4.0); LYMPHOCYTE % 4.8 %; MCH 33.4 pg (27.0-34.0); MCHC 32.2 gm/dL (32.0-36.5); MCV 103.7 fl (83.0-98.0); MONOCYTE % 4.9 %; MPV 9.5 fl (9.4-12.4); NEUTROPHIL % 87.9 %; NRBC % 0 /100WBC (0-0.00); RBC 4.04 M/uL (3.50-5.50); RDW-CV 13.7 % (11.9-14.6)
[2016-08-23 05:28] LABS: PLATELET COUNT 307 K/uL (150-450); WBC 19.4 K/uL (4.0-11.0)
[2016-08-23 05:33] LABS: INR - (THERAPEUTIC) 1.1 (0.92-1.07); PROTIME 11.6 SECONDS (9.8-11.4)
--- NOTE | 2016-08-23 05:34 | NUR ---
patient s/p crani with evac of hematoma,does not follow simple commamds,slight spontanuous movement to rt lower foot,withdraw the upper extremities to partial nailbed pressure,does not withdraw lt lower leg,rt pupil is 5mm rounded fixed,lt pupil is 3mm rounded very sluggish react to light,icp is trending up and the ventric was openned multiple times,iv mannitol 250ml(50gr)was given for icp>20,clear upper lungs sound diminished on the bases,A/C Vent mode fio2=40%,y1wav=29. follow up:continue to monitor patient's neuro and hemodynamic status closely.
[2016-08-23 11:46] LABS: ANION GAP 12.9 (10.0-19.0); BLOOD UREA NITROGEN 9 mg/dL (6-24); CALCIUM 7.5 mg/dL (8.5-10.5); CHLORIDE 120 mMol/L (96-110); CO2 25 mMol/L (22-32); CREATININE 0.9 mg/dL (0.6-1.3); ESTIMATED GFR (MDRD EQUATION) > 60; POTASSIUM 3.9 mMol/L (3.7-5.1); SODIUM 154 mMol/L (135-145)
--- NOTE | 2016-08-23 15:37 | NUR ---
No changes to vent settings t/o shift, continued in A/C mode 40% Fio2. Lung sounds clear/diminished left, slightly coarse right upper. Sxn with small cough from Pt, small cream/white thick. Will continue as ordered
--- NOTE | 2016-08-23 16:37 | NUR ---
Significant Events: Patient remains SAS 2, does not follow commands, occassional spont movement to RLE, pupils remain unreactive. Unable to induce a gag and does not overbreathe vent. SR-ST SBP stable-hypertensive. CPP remain within range. Ventric opened x5 for ICP >20 for total of 149 mL CSF clear to blood-tinged. Remains SR-ST, CPP remain within ordered range. Continues on 40% FiO2. TF ordered this shift. Follow up: Continue
[2016-08-23 21:12] LABS: BLOOD UREA NITROGEN 10 mg/dL (6-24); CO2 24 mMol/L (22-32); CREATININE 0.8 mg/dL (0.6-1.3); ESTIMATED GFR (MDRD EQUATION) > 60; POTASSIUM 3.6 mMol/L (3.7-5.1)
[2016-08-23 21:13] LABS: ANION GAP 13.6 (10.0-19.0); CALCIUM 7.4 mg/dL (8.5-10.5); CHLORIDE 122 mMol/L (96-110); SODIUM 156 mMol/L (135-145)
[2016-08-24 04:15] LABS: BICARBONATE 26.6 mmol/L (18.0-23.0); LACTATE 1.7 mEq/L (0.50-1.60); PCO2 41 mmHg (35-45); PO2 70 mmHg (80-90)
[2016-08-24 04:40] LABS: ALBUMIN 2.2 gm/dL (3.5-5.0); ALK PHOS 72 IU/L (33-138); ALT 20 IU/L (12-78); ANION GAP 10.5 (10.0-19.0); AST 8 IU/L (10-40); BLOOD UREA NITROGEN 8 mg/dL (6-24); CALCIUM 7.5 mg/dL (8.5-10.5); CHLORIDE 121 mMol/L (96-110); CO2 26 mMol/L (22-32); CREATININE 0.8 mg/dL (0.6-1.3); ESTIMATED GFR (MDRD EQUATION) > 60; POTASSIUM 3.5 mMol/L (3.7-5.1); SODIUM 154 mMol/L (135-145); TOTAL BILIRUBIN 0.8 mg/dL (0.0-1.5); TOTAL PROTEIN 5.3 g/dL (6.0-8.4)
[2016-08-24 05:12] LABS: BASOPHIL # 0.1 K/uL (0.0-0.2); BASOPHIL % 0.5 %; EOSINOPHIL # 0.9 K/uL (0.0-0.5); EOSINOPHIL % 4.2 %; HEMATOCRIT 39.5 % (37.0-53.0); HEMOGLOBIN 12.3 g/dL (11.0-16.0); IMMATURE GRANULOCYTE # 0.2 K/uL (0.0-0.3); LYMPHOCYTE # 0.8 K/uL (0.8-4.0); LYMPHOCYTE % 3.5 %; MCH 33.1 pg (27.0-34.0); MCHC 31.1 gm/dL (32.0-36.5); MCV 106.2 fl (83.0-98.0); MONOCYTE # 0.5 K/uL (0.0-1.0); MONOCYTE % 2.5 %; MPV 9.4 fl (9.4-12.4); NEUTROPHIL # (ANC) 19.2 K/uL (1.4-9.0); NEUTROPHIL % 88.3 %; NRBC % 0 /100WBC (0-0.00); PLATELET COUNT 271 K/uL (150-450); RBC 3.72 M/uL (3.50-5.50)
[2016-08-24 05:17] LABS: WBC 21.8 K/uL (4.0-11.0)
--- NOTE | 2016-08-24 05:17 | NUR ---
FiO2 weaned to 30% this shift. EtCO2 33-35 this shift. BrSs diminished bases. Suctioned scant amounts of thick, white secretions from ETT. Pt coughs with suctioning, does not overbreathe ventilator set RR of 16. Continue per plan of care.
[2016-08-24 05:19] LABS: INR - (THERAPEUTIC) 1.12 (0.92-1.07); PROTIME 11.8 SECONDS (9.8-11.4)
--- NOTE | 2016-08-24 05:38 | NUR ---
PT REMAINS COMATOSE, R) PUPIL 5MM, NON-REACTIVE, L) PUPIL 3MM, NON-REACTIVE. RESPONDS TO PAIN/WITHDRAWS IN ALL FOUR EXTREMITIES. DOES NOT FOLLOW COMMANDS, TRACK, OR HAVE ANY SPONTANEOUS MOVMENTS. NO GAG, POSITIVE COUGH. SR-ST 80S-100, HYPERTENSIVE SBP 130S-150S, AFEBRILE. DOES NOT OVERBREATHE VENT. FIO2 DECREASED TO 30% THIS SHIFT. NO RESIDUALS FROM TF, TF CURRENTLY RUNNING AT 40 ML/HR, GOAL 60 ML/HR. NO BM. UOP MARGINAL BEGINNING OF SHIFT THEN PICKING UP AFTER MANNITOL GIVEN. IVF CHANGED TO 1/2 NS W/KCL DUE TO INCREASING NA+ LEVELS; AM RECHECK 154 DOWN FROM 156. ENRIQUE RIBEIRO RN
--- NOTE | 2016-08-24 19:17 | NUR ---
Significant Events: Patient continues to be unresponsive and hard to induce withdraw. Pupils continue to be fixed and unequal. Remains in SR, hypertensive at times, PRN Labetalol given to keep SBP >160. Did increase ventric to 15 mmHg and will remain open until 20 mL of CSF drained each hour. Propofol off at 1600, no changes. Follow up: Continue
[2016-08-25 05:18] LABS: BICARBONATE 25.4 mmol/L (18.0-23.0); LACTATE 1.4 mEq/L (0.50-1.60); PCO2 40 mmHg (35-45); PO2 78 mmHg (80-90)
--- NOTE | 2016-08-25 05:28 | NUR ---
No vent changes made this shift. BrSs mostly diminished, at 0100 BrSs wheezey and coarse t/o, I suctioned small amounts of thick, white/cream secretions from ETT. Had cough all shift, no cough with last vent check and suction though. Ventric left open all the time, no sedation.
[2016-08-25 05:49] LABS: ALBUMIN 2.2 gm/dL (3.5-5.0); ALK PHOS 82 IU/L (33-138); ALT 16 IU/L (12-78); ANION GAP 13.5 (10.0-19.0); AST 10 IU/L (10-40); BLOOD UREA NITROGEN 11 mg/dL (6-24); CALCIUM 8.4 mg/dL (8.5-10.5); CHLORIDE 119 mMol/L (96-110); CO2 23 mMol/L (22-32); CREATININE 0.7 mg/dL (0.6-1.3); ESTIMATED GFR (MDRD EQUATION) > 60; POTASSIUM 4.5 mMol/L (3.7-5.1); SODIUM 151 mMol/L (135-145); TOTAL BILIRUBIN 0.7 mg/dL (0.0-1.5); TOTAL PROTEIN 5.8 g/dL (6.0-8.4)
[2016-08-25 06:02] LABS: BASOPHIL # 0.1 K/uL (0.0-0.2); BASOPHIL % 0.5 %; EOSINOPHIL # 1.5 K/uL (0.0-0.5); HEMATOCRIT 42.1 % (37.0-53.0); IMMATURE GRANULOCYTE # 0.1 K/uL (0.0-0.3); IMMATURE GRANULOCYTE % 0.6 %; LYMPHOCYTE # 1.2 K/uL (0.8-4.0); LYMPHOCYTE % 6.7 %; MCH 33.1 pg (27.0-34.0); MCHC 30.9 gm/dL (32.0-36.5); MCV 107.1 fl (83.0-98.0); MONOCYTE # 0.5 K/uL (0.0-1.0); MONOCYTE % 2.9 %; MPV 9.7 fl (9.4-12.4); NEUTROPHIL # (ANC) 14.9 K/uL (1.4-9.0); NEUTROPHIL % 81.3 %; NRBC % 0 /100WBC (0-0.00); RBC 3.93 M/uL (3.50-5.50); RDW-CV 13.8 % (11.9-14.6)
[2016-08-25 06:03] LABS: PLATELET COUNT 327 K/uL (150-450); WBC 18.3 K/uL (4.0-11.0)
--- NOTE | 2016-08-25 06:39 | NUR ---
patient will posture to partial nailbed pressure,does not follow simple commands,pupils are unequal and fixed,clear upper lungs sound diminished on the bases,a/c vent mode fio2=30%,l6qdd=59%,thick creamy secrtions when suctioned moderate amount,weak cough,patient bites on ett when suctioned,abd is distended and soft,b,s presented tolerate t.f at 60ml/h follow up:continue to monitor patient's neuro and hemodynamic status closely.
[2016-08-25 15:47] LABS: ANION GAP 11.4 (10.0-19.0); BLOOD UREA NITROGEN 12 mg/dL (6-24); CALCIUM 8.6 mg/dL (8.5-10.5); CHLORIDE 117 mMol/L (96-110); CO2 25 mMol/L (22-32); CREATININE 0.8 mg/dL (0.6-1.3); ESTIMATED GFR (MDRD EQUATION) > 60; POTASSIUM 4.4 mMol/L (3.7-5.1); SODIUM 149 mMol/L (135-145)
--- NOTE | 2016-08-25 17:06 | NUR ---
cpap 5/5 for 10 min tv 450 rr 18, hhowever icp increased to 33 with ventric open. and bp increased to 176
--- NOTE | 2016-08-25 17:21 | NUR ---
Significant Events: Patient is unchanged from previous days for neuro assessment. Dr Sanchez explained assessment and options to . Plans for CT in AM to reassess bleed. RT switched patient to CPAP for short trial this AM and patient did breathe on his own, however ICP increased to mid-30s. Mannitol given x2 for ICP>20. Afebrile. Follow up: CT in AM
[2016-08-26 04:52] LABS: ALBUMIN 2.2 gm/dL (3.5-5.0); ALK PHOS 91 IU/L (33-138); ALT 14 IU/L (12-78); AST 9 IU/L (10-40); BLOOD UREA NITROGEN 14 mg/dL (6-24); CO2 25 mMol/L (22-32); CREATININE 0.9 mg/dL (0.6-1.3); ESTIMATED GFR (MDRD EQUATION) > 60; POTASSIUM 4.2 mMol/L (3.7-5.1); TOTAL BILIRUBIN 0.7 mg/dL (0.0-1.5); TOTAL PROTEIN 6.1 g/dL (6.0-8.4)
[2016-08-26 04:53] LABS: ANION GAP 13.2 (10.0-19.0); CHLORIDE 116 mMol/L (96-110); SODIUM 150 mMol/L (135-145)
--- NOTE | 2016-08-26 05:30 | NUR ---
Patient was transported to CT with out incident. Patient has remained in AC all shift with out any setting changes. Breath sounds are slightly coarse at times but clear with and expiratory wheeze. The wheeze has cleared through out the shift. Suctioning small to moderate amounts of thick white. Will continue to monitor.
[2016-08-26 06:30] LABS: BASOPHIL # 0.2 K/uL (0.0-0.2); EOSINOPHIL # 1.4 K/uL (0.0-0.5); EOSINOPHIL % 9.2 %; HEMATOCRIT 42.7 % (37.0-53.0); HEMOGLOBIN 13.2 g/dL (11.0-16.0); IMMATURE GRANULOCYTE # 0.1 K/uL (0.0-0.3); IMMATURE GRANULOCYTE % 0.6 %; LYMPHOCYTE # 1.4 K/uL (0.8-4.0); LYMPHOCYTE % 9.2 %; MCH 33.2 pg (27.0-34.0); MCHC 30.9 gm/dL (32.0-36.5); MCV 107.3 fl (83.0-98.0); MONOCYTE # 0.6 K/uL (0.0-1.0); MONOCYTE % 3.8 %; MPV 9.7 fl (9.4-12.4); NEUTROPHIL # (ANC) 11.8 K/uL (1.4-9.0); NEUTROPHIL % 76.2 %; NRBC % 0 /100WBC (0-0.00); PLATELET COUNT 379 K/uL (150-450); RBC 3.98 M/uL (3.50-5.50); RDW-CV 13.6 % (11.9-14.6); WBC 15.5 K/uL (4.0-11.0)
--- NOTE | 2016-08-26 07:48 | NUR ---
PT REMAINS INTUBATED WITHOUT SEDATION. SPONTANEOUS COUGH AT TIMES, NO GAG. OCCASIONAL SPONTANEOUS MOVMENT OF LLE. WITHDRAWS IN BLE, NON-SPECIFIC MOVMENT IN BUE. BITES ON ETT WHEN ATTMEPTING TO PERFORM ORAL CARES. SR ON MONITOR, HYPERTENSIVE, LEBATELOL GIVEN X2 FOR SBP>160. AFEBRILE. DOES NOT OVERBREATHE VENT. TOLERATING TF WELL, NO BM THIS SHIFT. UOP APPROPRIATE. MANNITOL GIVEN X1 DOSE. DRESSING TO HEAD CHANGED X1 DUE TO ACTIVE BLEEDING; APPEARS TO NEED ADDITIONAL STAPLE OR SUTURE. ENRIQUE RIBEIRO RN
--- NOTE | 2016-08-26 14:40 | NUR ---
SIGNIFICANT EVENT: NO CHANGES IN NEURO STATUS THROUGHOUT THE DAY. HOURLY NEURO CHECKS. PATIENT DOES NOT OPEN EYES SPONTANEOUSLY, TO PAIN, OR TO VOICE. PUPILS UNEQUAL, NON REACTIVE. PATIENT WITHDRAWS TO PAIN IN BILAT LOWER EXTREMITIES. SPONT MOVEMENTS IN L) LOWER EXTREMITY. DOES NOT FOLLOW ANY COMMANDS. DOES NOT WITHDRAW TO PAIN IN BILAT UPPER EXTREMITIES, MOVES BILAT LOWER EXTREMITIES WHEN PAIN IS UPPLIED TO UPPER EXTREMITIES AND TOLTS HEAD TOWARDS PAINFUL STIMULI. ICP/VENTRIC INTACT. NO DRAINAGE AROUND VENTRIC. ICP 17-24. VENTRIC OPEN AT ALL TIMES AT 10MMHG, 8-19ML OF CLEAR CSF DRAINED PER HOUR. PATIENT HAS BEEN IN SINUS RHYTHM, HR 70-80S, PULSES PALPABLE THROUGHOUT. [id number], MAP>65 AT ALL TIMES. CPP 70-80S. EDEMA PRESENT. CVP 6-11. MAX TEMP OF 99.6 SO FAR. PATIENT CONTINUES TO REQUIRE VENT SUPPORT, DOES NOT OVER BREATH VENT SETTINGS. A/C MODE, RR 16, TV 710S, PEEP 5, FIO2 30%. ETCO2 34-38. SPONT COUGH, PRODUCTIVE. GAG REFLEX INTACT.BOWEL SOUNDS HYPOACTIVE, NO BM. OG INFUSING GLUCERNA AT 60ML/HR, NO RESIDUALS. MCPHERSON INTACT, POLYURIA, 200-350ML/HR. NO NEW SKIN ISSUES, REPOSITIONED EVERY 2 HOURS. NO COMPLICATIONS WITH R) IJ, INFUSING 1/2NS WITH KCL AT 120ML/HR. DR. IBANEZ NOTIFIED OF ALL ASSESSMENT FINDINGS. FOLLOW UP: CONTINUE TO MONITOR, REPORT ANY CHANGES.
[2016-08-26 15:55] LABS: ANION GAP 11.4 (10.0-19.0); BLOOD UREA NITROGEN 17 mg/dL (6-24); CHLORIDE 115 mMol/L (96-110); CO2 26 mMol/L (22-32); ESTIMATED GFR (MDRD EQUATION) > 60; POTASSIUM 4.4 mMol/L (3.7-5.1); SODIUM 148 mMol/L (135-145)
--- NOTE | 2016-08-26 17:15 | NUR ---
D: HEAD BLEED I: VENT, MDI R: PT REMAINED ON 30% FIO2 T/O DAY, BS SL COARSE T/O, SXNED OUT SMALL TO MOD THICK CREAMY SECRETIONS, NO OTHER SIGNIFICANT CHANGES T/O DAY P: PT HAVE TRACH & PEG PLACED TOMORROW
[2016-08-27 04:14] LABS: ALBUMIN 2.4 gm/dL (3.5-5.0); ALK PHOS 84 IU/L (33-138); ALT 14 IU/L (12-78); ANION GAP 11.4 (10.0-19.0); AST 13 IU/L (10-40); BLOOD UREA NITROGEN 20 mg/dL (6-24); CALCIUM 9.1 mg/dL (8.5-10.5); CHLORIDE 114 mMol/L (96-110); CO2 27 mMol/L (22-32); ESTIMATED GFR (MDRD EQUATION) > 60; POTASSIUM 4.4 mMol/L (3.7-5.1); TOTAL BILIRUBIN 0.8 mg/dL (0.0-1.5); TOTAL PROTEIN 6.5 g/dL (6.0-8.4)
[2016-08-27 04:16] LABS: SODIUM 148 mMol/L (135-145)
[2016-08-27 04:34] LABS: BASOPHIL # 0.2 K/uL (0.0-0.2); BASOPHIL % 0.8 %; EOSINOPHIL # 1.6 K/uL (0.0-0.5); EOSINOPHIL % 8.4 %; HEMATOCRIT 44.6 % (37.0-53.0); IMMATURE GRANULOCYTE # 0.2 K/uL (0.0-0.3); IMMATURE GRANULOCYTE % 0.9 %; LYMPHOCYTE # 1.8 K/uL (0.8-4.0); LYMPHOCYTE % 9.4 %; MCH 33.4 pg (27.0-34.0); MCHC 31.4 gm/dL (32.0-36.5); MCV 106.4 fl (83.0-98.0); MPV 9.3 fl (9.4-12.4); NEUTROPHIL # (ANC) 14.6 K/uL (1.4-9.0); NEUTROPHIL % 75.5 %; NRBC % 0 /100WBC (0-0.00); PLATELET COUNT 395 K/uL (150-450); RBC 4.19 M/uL (3.50-5.50); RDW-CV 13.4 % (11.9-14.6); WBC 19.3 K/uL (4.0-11.0)
--- NOTE | 2016-08-27 05:30 | NUR ---
No vent changes made this shift. EtCO2 35-38 this shift. BrSs coarse at times, clear with suctioning of moderate amounts of thick, yellow secretions from ETT. Does not overbreathe vent, no sedation, does have cough with suctioning. Continue per plan of care.
--- NOTE | 2016-08-27 12:27 | NUR ---
I did touch base with nursing and family is here and planning to withdraw cares. They will be in touch if need anything.
--- NOTE | 2016-08-27 13:40 | NUR ---
SCREENED D/T LOS. PER CHART REVIEWS, NURSING REPORT FAMILY IS PLANNING ON WITHDRAWING CARES.
--- NOTE | 2016-08-27 18:00 | NUR ---
D: HEAD BLEED I: N/A R: PT WAS EXTUBATED TO 2 LPM FOR COMFORT CARES @ 13:33 P: N/A
== END 2016-08-27 14:40 | disposition expired | DRG 25 ==
LOC: GMED 10:46 → GICU 11:27
PROVIDERS: Anesthesiology; Emergency Medicine; ADMIT Neurological Surgery
PROC: 00H632Z Insertion of Monitoring Device into Cerebral Ventricle, Percutaneous Approach (ICD-10-PCS; principal; 2016-08-22)
PROC: 02HV33Z Insertion of Infusion Device into Superior Vena Cava, Percutaneous Approach (ICD-10-PCS; principal; 2016-08-22)
PROC: 00C40ZZ Extirpation of Matter from Intracranial Subdural Space, Open Approach (ICD-10-PCS; principal; 2016-08-22)
PROC: 009630Z Drainage of Cerebral Ventricle with Drainage Device, Percutaneous Approach (ICD-10-PCS; principal; 2016-08-22)
PROC: 03HY33Z Insertion of Infusion Device into Upper Artery, Percutaneous Approach (ICD-10-PCS; principal; 2016-08-22)
PROC: 5A1955Z Respiratory Ventilation, Greater than 96 Consecutive Hours (ICD-10-PCS; 2016-08-22)
DX: J96.01 Acute respiratory failure with hypoxia; J96.02 Acute respiratory failure with hypercapnia; J44.9 Chronic obstructive pulmonary disease, unspecified; E87.0 Hyperosmolality and hypernatremia; I48.92 Unspecified atrial flutter; I11.0 Hypertensive heart disease with heart failure; I50.9 Heart failure, unspecified; D72.829 Elevated white blood cell count, unspecified; W10.9XXA Fall (on) (from) unspecified stairs and steps, initial encounter; R40.2432 Glasgow coma scale score 3-8, at arrival to emergency department; Z51.5 Encounter for palliative care; I48.91 Unspecified atrial fibrillation; G25.0 Essential tremor; F10.21 Alcohol dependence, in remission; I25.10 Atherosclerotic heart disease of native coronary artery without angina pectoris; K21.9 Gastro-esophageal reflux disease without esophagitis; Z66 Do not resuscitate; M19.90 Unspecified osteoarthritis, unspecified site; E66.9 Obesity, unspecified; Z68.39 Body mass index [BMI] 39.0-39.9, adult; M51.36 Other intervertebral disc degeneration, lumbar region; Z87.891 Personal history of nicotine dependence; Z85.46 Personal history of malignant neoplasm of prostate; E87.6 Hypokalemia; Z92.3 Personal history of irradiation; Z86.718 Personal history of other venous thrombosis and embolism; Z96.651 Presence of right artificial knee joint; F32.9 Major depressive disorder, single episode, unspecified; G47.30 Sleep apnea, unspecified
CPT/HCPCS: J1953; J2060; J2270; J2370; J2704; J3480; J7040; J7050

== ENCOUNTER → 2016-08-22 | Outpatient (CLI) | payer MEDICARE ==
[~2016-08-22] MED LIST: AMOXICILLIN500 MG PO; ASPIR 8181 MG PO; ATIVAN 0.5MG0.5 MG PO; AZILECT1 MG PO; B-121000 MCG PO; BACITRACIN1 PKT TOP; COZAAR50 MG PO; CPAP INH; CYMBALTA60 MG PO; FOLIC ACID1 MG PO; KLONOPIN1 M1 PO; KLOR-CON 1010 MEQ PO; LASIX40 M1 PO; MAGNESIUM OXID400 MG PO; MYSOLINE50 M1 PO; PROAIR HFA8.5 GM INH; PROTONIX40 MG PO; SPIRIVA HANDIHA1 KIT INH; THERA-VITE W/ B1 TAB PO; ULTRAM50 MG PO; VITAMIN B-1100 MG PO
== END | disposition disaster alternative care site (69) ==
LOC: GAIR 10:26
DX: R40.20 Unspecified coma (principal); S01.81XA Laceration without foreign body of other part of head, initial encounter; I48.91 Unspecified atrial fibrillation; J44.9 Chronic obstructive pulmonary disease, unspecified; I50.9 Heart failure, unspecified; K21.9 Gastro-esophageal reflux disease without esophagitis; I10 Essential (primary) hypertension; M19.90 Unspecified osteoarthritis, unspecified site; G20 Parkinson's disease; Z85.46 Personal history of malignant neoplasm of prostate; Z79.899 Other long term (current) drug therapy; Z88.0 Allergy status to penicillin; Z88.6 Allergy status to analgesic agent; Z88.8 Allergy status to other drugs, medicaments and biological substances; W22.8XXA Striking against or struck by other objects, initial encounter
CPT/HCPCS: A0422; A0431; A0436; J0330; J2250; J2405; J3010